=== PATIENT | male | born 1960 | race Two or more races ===

== ENCOUNTER 2020-10-09 06:49 | Day surgery (SDC) | payer OTHER ==
[~2020-10-09 06:49] MED LIST: FOLIC ACID PO
[2020-10-09] MEDS ORDERED: OXYC1TAB9 PO (09:18)
[2020-10-09] MEDS ORDERED: BACTRIM DS TAB1 EACH PO (09:18)
== END 2020-10-09 12:12 | disposition home or self-care (01) ==
LOC: CIR.AMB 06:49
PROVIDERS: ATTEND Orthopaedic Surgery Sports Medicine
DX: M75.01 Adhesive capsulitis of right shoulder (principal); M24.611 Ankylosis, right shoulder